=== PATIENT | male | born 1980 | race Caucasian/White ===

== ENCOUNTER → 2017-10-28 | Outpatient (CLI) | payer MEDICARE, OTHER ==
--- NOTE | 2017-10-28 10:59 | XR ---
EXAMINATION TYPE: XR thoracic spine complete DATE OF EXAM: 10/28/2017 CLINICAL HISTORY: Back pain for years. TECHNIQUE: Frontal, lateral, and swimmer's view of thoracic spine are obtained. COMPARISON: None. FINDINGS: Thoracic spine show satisfactory alignment without evidence of acute fracture or dislocatio n. Vertebral body heights and disc space heights are preserved. Minimal multilevel anterior spurring is seen mid thoracic spine. Visualized ribs are unremarkable bilaterally. IMPRESSION: Minimal multilevel anterior spurring mid thoracic spine.
--- NOTE | 2017-10-28 10:59 | XR ---
EXAMINATION TYPE: XR lumbosacral spine min 4V DATE OF EXAM: 10/28/2017 CLINICAL HISTORY: Back pain for years. TECHNIQUE: Frontal, lateral, and oblique images of the lumbar spine are obtained. COMPARISON: None FINDINGS: There are 5 lumbar type vertebral bodies identified. The lumbar spine shows satisfactory alignment without evidence of acute fracture or dislocation. There is mild disc space narrowing and a nterior spurring T12-L1 level. Vertebral body heights and disk space heights otherwise are within nor mal limits. Mild anterior spurring superior anterior L3, L4, and L5 endplates is present The oblique images appear within normal limits. The overlying soft tissue appears unremarkable. IMPRESSION: Mild anterior spurring mid to lower lumbar levels and mild degenerative change T12-L1 lev el.
== END | disposition home or self-care (01) ==
LOC: RADXRMAIN 10:30
PROVIDERS: ATTEND Nurse Practitioner
DX: M47.815 Spondylosis without myelopathy or radiculopathy, thoracolumbar region (principal); M46.05 Spinal enthesopathy, thoracolumbar region
CPT/HCPCS: 72072; 72110

== ENCOUNTER 2020-07-31 15:03 | Emergency (ER) | payer MEDICARE, OTHER ==
[2020-07-31 15:07] VITALS: RESP 18
[2020-07-31] MEDS ORDERED: HYDROmorphone 1 MG/ML 1 ML SYRINGE IM STA (15:31)
[2020-07-31] MEDS ORDERED: lisinopriL 10 MG TAB PO STA (15:37)
--- NOTE | 2020-07-31 15:43 | ED ---
Back Pain HPI - General Chief Complaint: Back Pain/Injury Stated Complaint: Back pain Time Seen by Provider: 07/31/20 15:14 Source: patient, family, RN notes reviewed Limitations: no limitations - History of Present Illness Initial Comments: This is a 39-year-old male presents emergency Department chief complaint of back pain 2 days. Patient states he was working on his car states that he spent over pushing her ramp coming to tired when he felt his back pop. He states he had immediate symptoms radiate down his left leg. Denies any bowel, bladder cancer retention. Denies any difficulty and bleeding. He states that he has pain areas on his leg intermittently. Denies any saddle anesthesias. Patient has chronic back issues in which she has had multiple injections and has been seen by Dr. Alvarez. Patient states that he has not been referred to Dr. Liu for pain management. Patient has no mental abdominal pain. Denies any dysuria hematuria no fevers or chills. - Related Data Home Medications Medication Instructions Recorded Confirmed Clarence Carbonate 600 mg PO BID 05/05/15 05/05/15 Omeprazole [PriLOSEC] 20 mg PO AC-BID 05/05/15 05/05/15 Previous Rx's Medication Instructions Recorded Cephalexin [Keflex] 500 mg PO Q6HR #32 cap 05/05/15 Ibuprofen [Motrin] 800 mg PO Q8HR PRN #20 tab 05/05/15 HYDROcodone/APAP 7.5-325MG [[place] 1 tab PO Q6HR PRN 3 Days #12 tab 07/31/20 7.5-325] Ibuprofen [Motrin] 800 mg PO Q6HR #20 tab 07/31/20 predniSONE 50 mg PO DAILY #5 tab 07/31/20 Allergies Allergy/AdvReac Type Severity Reaction Status Date / Time No Known Allergies Allergy Verified 07/31/20 15:07 Review of Systems ROS Statement: Those systems with pertinent positive or pertinent negative responses have been documented in the HPI. ROS Other: All systems not noted in ROS Statement are negative. Past Medical History Past Medical History: No Reported History History of Any Multi-Drug Resistant Organisms: None Reported Past Surgical History: No Surgical Hx Reported Past Psychological History: Bipolar, Depression Smoking Status: Current some day smoker Past Alcohol Use History: Occasional Past Drug Use History: None Reported General Exam Limitations: no limitations General appearance: alert, in no apparent distress Head exam: Present: atraumatic, normocephalic, normal inspection Eye exam: Present: normal appearance, PERRL, EOMI. Absent: scleral icterus, conjunctival injection, periorbital swelling ENT exam: Present: normal exam, mucous membranes moist Neck exam: Present: normal inspection, full ROM. Absent: tenderness, meningismus, lymphadenopathy Respiratory exam: Present: normal lung sounds bilaterally. Absent: respiratory distress, wheezes, rales, rhonchi, stridor Cardiovascular Exam: Present: regular rate, normal rhythm, normal heart sounds. Absent: systolic murmur, diastolic murmur, rubs, gallop, clicks GI/Abdominal exam: Present: soft, normal bowel sounds. Absent: distended, tenderness, guarding, rebound, rigid Extremities exam: Present: other (Lower extremity strength equal bilaterally, equal color equal warmth neurovascular intact,.) Back exam: Present: normal inspection, full ROM (Mild discomfort), tenderness (Left lower lumbar), paraspinal tenderness. Absent: CVA tenderness (R), CVA tenderness (L), vertebral tenderness Neurological exam: Present: reflexes normal. Absent: motor sensory deficit Course Vital Signs 07/31/20 07/31/20 15:05 15:48 Temperature 98.7 F Pulse Rate 100 85 Respiratory 18 18 Rate Blood Pressure 144/111 145/102 O2 Sat by Pulse 99 98 Oximetry - Reevaluation(s) Reevaluation #1: 07/31/20 15:43 Patient's vitals reviewed, patient is mildly hypertensive, patient did not take his lisinopril. Medical Decision Making - Medical Decision Making X-ray shows no acute changes patient is degenerative changes nose patient has no red flag symptoms. Patient discharged in stable condition. Disposition Clinical Impression: Strain of lumbar region Disposition: HOME SELF-CARE Condition: Stable Instructions (If sedation given, give patient instructions): Acute Low Back Pain (ED) Additional Instructions: Please return to the Emergency Department if symptoms worsen or any other concerns. Prescriptions: Ibuprofen [Motrin] 800 mg PO Q6HR #20 tab HYDROcodone/APAP 7.5-325MG [[place] 7.5-325] 1 tab PO Q6HR PRN 3 Days #12 tab PRN Reason: pain predniSONE 50 mg PO DAILY #5 tab Is patient prescribed a controlled substance at d/c from ED?: Yes When asked, does pt state using other controlled substances?: No If prescribed controlled substance>3 days was MAPS reviewed?: Prescribed <3 Days If opioid is for acute pain is fill amount 7 days or less?: Yes If Rx opioid, was Start Talking consent form obtained?: Yes Referrals: [facility] [Primary Care Provider] - 1-2 days Stepan Soto DO [Doctor of Osteopathic Medicine] - 1-2 days Time of Disposition: 16:37
--- NOTE | 2020-07-31 15:52 | XR ---
EXAMINATION TYPE: XR lumbosacral spine min 4V DATE OF EXAM: 07/31/2020 CLINICAL HISTORY: Extreme low back pain after bending injury. TECHNIQUE: Frontal, lateral, and oblique images of the lumbar spine are obtained. COMPARISON: Lumbar spine x-ray October 28, 2017. FINDINGS: There are 5 lumbar type vertebral bodies redemonstrated. The lumbar spine shows satisfact ory alignment without evidence of acute fracture or dislocation. Vertebral body heights and disk spac e heights remain within normal limits. Persistent mild anterior spur superior L4 endplate and modera te anterior spur superior L5 endplate. The oblique images appear within normal limits. The overlying soft tissue appears unremarkable. IMPRESSION: As above. No significant change from prior.
[2020-07-31 16:45] VITALS: BP 139/99; PULSE 67; TEMP 98
== END 2020-07-31 16:45 | disposition home or self-care (01) ==
LOC: EC 15:03
DX: S39.012A Strain of muscle, fascia and tendon of lower back, initial encounter (principal); I10 Essential (primary) hypertension; F31.9 Bipolar disorder, unspecified; Z79.899 Other long term (current) drug therapy; X50.1XXA Overexertion from prolonged static or awkward postures, initial encounter; Y93.89 Activity, other specified
CPT/HCPCS: 72110; 96372; 99283; J1170

== ENCOUNTER 2020-08-02 14:27 | Emergency (ER) | payer MEDICARE, OTHER ==
[2020-08-02 14:44] VITALS: BP 156/94; PULSE 87; RESP 18; TEMP 97.8
[2020-08-02] MEDS ORDERED: LIDOCAINE 5% PATCH TOPICAL STA (15:04)
[2020-08-02] MEDS ORDERED: KETOROLAC 15 MG/ML 1 ML VIAL IM STA (15:04)
[2020-08-02] MEDS ORDERED: ACET/COD 300 MG/30 MG STARTER PACK 6 TAB BTL PO STA (15:05)
--- NOTE | 2020-08-02 15:14 | ED ---
Back Pain HPI - General Chief Complaint: Back Pain/Injury Stated Complaint: Strain to lumbar Time Seen by Provider: 08/02/20 14:47 Source: patient - History of Present Illness Initial Comments: Patient is a 39-year-old male with history of chronic back pain presenting to the emergency department with a chief complaint of back pain. Patient does report history of chronic back pain that was exacerbated about 3 years ago when he attempted to work on his car and felt a pop. Patient states he was in the emergency department 3 days ago and was started on prednisone and given hydrocodone for pain. Patient reports the pain has a manageable and he has not been able to get into an fundraising specialist due to insurance purposes. States he also spoke with his primary care physician who advised him to come to the emergency department. Patient reports she has an appointment scheduled with a pain management clinic in October but they could not see him any sooner. Denies any saddle anesthesia, urinary retention with overflow incontinence or bowel incontinence. Denies abdominal or chest pain. - Related Data Home Medications Medication Instructions Recorded Confirmed [place] Carbonate 600 mg PO BID 05/05/15 05/05/15 Omeprazole [PriLOSEC] 20 mg PO AC-BID 05/05/15 05/05/15 Previous Rx's Medication Instructions Recorded Cephalexin [Keflex] 500 mg PO Q6HR #32 cap 05/05/15 Ibuprofen [Motrin] 800 mg PO Q8HR PRN #20 tab 05/05/15 HYDROcodone/APAP 7.5-325MG [[place] 1 tab PO Q6HR PRN 3 Days #12 tab 07/31/20 7.5-325] Ibuprofen [Motrin] 800 mg PO Q6HR #20 tab 07/31/20 predniSONE 50 mg PO DAILY #5 tab 07/31/20 Ibuprofen [Motrin] 600 mg PO Q8HR PRN #30 tab 08/02/20 Lidocaine 5% Patch [Lidoderm] 1 patch TOPICAL DAILY #6 patch 08/02/20 Allergies Allergy/AdvReac Type Severity Reaction Status Date / Time No Known Allergies Allergy Verified 08/02/20 14:44 Review of Systems ROS Statement: Those systems with pertinent positive or pertinent negative responses have been documented in the HPI. ROS Other: All systems not noted in ROS Statement are negative. Past Medical History Past Medical History: No Reported History History of Any Multi-Drug Resistant Organisms: None Reported Past Surgical History: No Surgical Hx Reported Additional Past Surgical History / Comment(s): Dental Past Psychological History: Bipolar, Depression Smoking Status: Current every day smoker Past Alcohol Use History: Occasional Past Drug Use History: Marijuana General Exam Limitations: no limitations General appearance: alert, in no apparent distress, obese Head exam: Present: atraumatic, normocephalic, normal inspection Eye exam: Present: normal appearance, PERRL, EOMI Pupils: Present: normal accommodation ENT exam: Present: normal exam, normal oropharynx, mucous membranes moist, TM's normal bilaterally, normal external ear exam Neck exam: Present: normal inspection, full ROM. Absent: tenderness Respiratory exam: Present: normal lung sounds bilaterally. Absent: respiratory distress, wheezes, rales Cardiovascular Exam: Present: regular rate, normal rhythm, normal heart sounds GI/Abdominal exam: Present: soft. Absent: distended, tenderness, guarding, rebound Extremities exam: Present: normal inspection, full ROM, normal capillary refill. Absent: tenderness Back exam: Present: normal inspection, full ROM, tenderness, paraspinal tenderness (Lumbosacral tenderness. Positive leg raise test bilaterally). Absent: CVA tenderness (R), CVA tenderness (L) Neurological exam: Present: alert, oriented X3 Psychiatric exam: Present: normal affect, normal mood Skin exam: Present: warm, dry, intact, normal color Course Vital Signs 08/02/20 14:42 Temperature 97.8 F Pulse Rate 87 Respiratory 18 Rate Blood Pressure 156/94 O2 Sat by Pulse 98 Oximetry Medical Decision Making - Medical Decision Making Patient is a 39-year-old male with acute on chronic back pain. Patient was advised to continue taking the prednisone which she still has 2 doses left. No Cauda equina. He was advised to attend physical therapy and follow-up with them.. She was given Tylenol 3 starter pack. He was given Toradol in the ED and a Lidoderm patch. He will be discharged with Lidoderm patches. Strict return parameters were thoroughly discussed the patient was on standing agreeable. Case discussed with physician. Disposition Clinical Impression: Mechanical back pain, Strain of lumbar region Disposition: HOME SELF-CARE Condition: Stable Instructions (If sedation given, give patient instructions): Acute Low Back Pain (ED), Low Back Strain (ED) Additional Instructions: Take prescribed medication as directed. Follow up with her primary care physician. Return to emergency department if symptoms worsen. Prescriptions: Lidocaine 5% Patch [Lidoderm] 1 patch TOPICAL DAILY #6 patch Ibuprofen [Motrin] 600 mg PO Q8HR PRN #30 tab PRN Reason: Pain Is patient prescribed a controlled substance at d/c from ED?: No Referrals: [facility] [Primary Care Provider] - 1-2 days Time of Disposition: 15:24
== END 2020-08-02 15:35 | disposition home or self-care (01) ==
LOC: EC 14:27
DX: S39.012A Strain of muscle, fascia and tendon of lower back, initial encounter (principal); F17.200 Nicotine dependence, unspecified, uncomplicated; Z79.899 Other long term (current) drug therapy; X50.9XXA Other and unspecified overexertion or strenuous movements or postures, initial encounter
CPT/HCPCS: 99283 ×2; 96372 ×2; J1885

== ENCOUNTER → 2022-01-23 | Outpatient (CLI) | payer MEDICARE, OTHER ==
--- NOTE | 2022-01-23 10:05 | CA ---
Transthoracic Echo Report Name: Hunter Sargent Age: 41 Gender: M : 1980 Exam Date: 01/23/2022 08:43 Exam Location: [place] Echo Ht (in): 69 Wt (lb): 245 Ordering Physician: [facility] Attending/Referring Phys: Omayra Steward [facility] [employer] Technician Liza Rosenthal RDCS Procedure CPT: Indications: R60.9 EDEMA Cardiac Hx: Technical Quality: Good Contrast 1: Total Dose (mL): Contrast 2: Total Dose (mL): MEASUREMENTS (Male / Female) Normal Values 2D ECHO LV Diastolic Diameter PLAX 5.0 cm 4.2 - 5.9 / 3.9 - 5.3 cm LV Systolic Diameter PLAX 3.4 cm IVS Diastolic Thickness 1.1 cm 0.6 - 1.0 / 0.6 - 0.9 cm LVPW Diastolic Thickness 1.4 cm 0.6 - 1.0 / 0.6 - 0.9 cm LV Relative Wall Thickness 0.5 RV Internal Dim ED PLAX 3.5 cm LA Volume 32.6 cm 18 - 58 / 22 - 52 cm M-MODE Aortic Root Diameter MM 3.4 cm LA Systolic Diameter MM 3.2 cm LA Ao Ratio MM 1.0 MV E Point Septal Separation 1.4 cm AV Cusp Separation MM 2.2 cm DOPPLER AV Peak Velocity 120.6 cm/s AV Peak Gradient 5.8 mmHg MV Area PHT 3.6 cm Mitral E Point Velocity 63.5 cm/s Mitral A Point Velocity 67.7 cm/s Mitral E to A Ratio 0.9 MV Deceleration Time 210.3 ms MV E' Velocity 5.1 cm/s Mitral E to MV E' Ratio 12.4 TR Peak Velocity 131.0 cm/s TR Peak Gradient 6.9 mmHg Right Ventricular Systolic Press 11.4 mmHg FINDINGS Left Ventricle Mildly increased septal wall thickness. Left ventricular ejection fraction is estimated at 50-55 %. Normal left ventricular systolic function with no obvious regional wall motion abnormalities. Normal left ventricular diastolic filling pattern. Right Ventricle Normal right ventricular size and function. Right ventricular systolic pressure within normal limits. Right Atrium Normal right atrial size. Left Atrium Normal left atrial size and volume Mitral Valve Structurally normal mitral valve. Trace mitral regurgitation. Aortic Valve Trileaflet aortic valve. No aortic regurgitation. Tricuspid Valve Structurally normal tricuspid valve. Trace tricuspid regurgitation. Pulmonic Valve Structurally normal pulmonic valve. No pulmonic regurgitation. Pericardium Normal pericardium. Aorta Normal size aortic root and proximal ascending aorta. CONCLUSIONS #1. Mild septal hypertrophy. Left ankle function is fair with an ejection fraction of 50-55%. Left ventricle size is normal. #2. Trace mitral regurgitation and tricuspid regurgitation. #3. Normal chamber sizes. #4. No pericardial effusion Previewed by: Dr. Talib Hernandez MD (Electronically Signed) Final Date: 23 January 2022 10:04
--- NOTE | 2022-01-23 10:30 | P.STRESS ---
- Stress Test Note Stress Test Results/Findings: Exam Performed: stress test Exam Date: 01/23/22 Reason for Exam: EDEMA, CHEST PAIN Height: 5 ft 9 in Weight: 111.4 kg Protocol: KELY Stage: 3 Duration of Exercise: 9:20 Resting Heart Rate: 79 Resting Blood Pressure: 108/86 Maximum Achieved Heart Rate: 137 Maximum Achieved Blood Pressure: 179/89 85% PMHR: 152 100% PMHR: 179 METS: 10.9 Technologist Comment: Stress Test Results/Findings: This is a 41-year-old gentleman with history of hypertension and smoking being evaluated symptoms of chest pain. Stress data: Baseline EKG showed sinus rhythm with mild nonspecific ST-T changes. Blood pressure at rest is 108/86 with pulse rate of 79. Patient walked on the Kely protocol for 9 minutes and 20 seconds achieving a maximum rate of 137 with a blood pressure 179/89. EKGs taken during and after exercise did not reveal significant changes from the baseline. Patient did not experience any chest pain. Final impression #1. Negative stress test #2. Good exercise capacity #3. Patient did not experience any chest pain #4. The test was stopped because of shortness of breath. #5. No arrhythmias noted.
== END | disposition home or self-care (01) ==
LOC: RADECHMAIN 08:29
PROVIDERS: ATTEND Internal Medicine
DX: R60.9 Edema, unspecified (principal)
CPT/HCPCS: 93017; 93306